=== PATIENT | male | born 1990 | race Caucasian/White ===

== ENCOUNTER 2019-09-09 10:30 | Emergency (ER) | payer SELFPAY ==
[2019-09-09 10:33] VITALS: BP 153/93; PULSE 112; RESP 18; TEMP 37; O2SAT 99; BMI 26.4
--- NOTE | 2019-09-09 10:41 | W.ED.WOUNDLC ---
HPI - Wound/Laceration General: Chief Complaint: Wound/Laceration Stated Complaint: l hand lac Time Seen by Provider: 09/09/19 10:41 Source: patient Mode of arrival: ambulatory Limitations: no limitations History of Present Illness: HPI narrative: Patient has injury to the left hand. Patient was cleaning his garage and picked up a piece of sheet metal and cut his left hand. Incident occurred just prior to arrival. Patient cannot recall his last tetanus. Patient appears well. Patient appears no acute distress. Review of Systems General: Reports: 10 or more systems reviewed and unremarkable except in HPI and below Skin/Breast: Reports: other (Laceration left hand) [facility] ED PFSH: Social History Smoking and tobacco status: current every day smoker Physical Exam Const: COMMON NORMALS: no acute distress and patient oriented x3 GENERAL APPEARANCE: cooperative HENMT: COMMON NORMALS: normocephalic HEAD & SCALP: normal to inspection and normocephalic Eye: GENERAL EYE: appearance normal, both eyes and all related structures Neck/C-Spine: COMMON NORMALS: full ROM Chest: COMMONS NORMALS: normal inspection of the chest Resp: COMMON NORMALS: normal respiratory effort EFFORT & INSPECTION: Yes able to speak in complete sentences Cardio: COMMON NORMALS: regular rate and regular rhythm RATE: regular rate RHYTHM: regular rhythm GI: COMMON NORMALS: non-tender : COMMON NORMALS: Yes no CVA tenderness BLADDER/KIDNEY EXAM: Yes no CVA tenderness Back/Pelvis: COMMON NORMALS: no CVA tenderness and thoracic and lumbar spine normal to inspection Extremity: COMMON NORMALS: normal to inspection Neuro: COMMON NORMALS: patient oriented x3 and moves all extremities Psych: COMMON NORMALS: mental status grossly normal and cooperative Skin: NARRATIVE SKIN EXAM: Patient has 2 lacerations to the left hand between the first and second digit. First laceration is approximately 3 cm, second laceration is about 4 cm. Patient also has a third superficial laceration 0.5 cm just medial to the first laceration. Both lacerations are parallel to 1 another. Patient has normal range of motion of the hand. And normal tendon function. No foreign body. Procedures Laceration Laceration 1: Site: hand Side (If applicable): left Size (cm): 3 Description: linear Depth: simple, single layer Local Anesthetic: lidocaine 1% and with epi Amount of anesthesia used (mL): 4 Pre-repair: wound explored and deep structures intact Skin layer closed with: nylon Size (cm): 5-0 Number of sutures: 7 Technique: simple, interrupted Laceration 2: Site: hand Side (If applicable): left Size (cm): 3.5 Description: linear Depth: simple, single layer Local Anesthetic: lidocaine 1% and with epi Amount of anesthesia used (mL): 4 Pre-repair: wound explored, irrigated extensively and wound margins revised Skin layer closed with: nylon Size (cm): 5-0 Number of sutures: 8 Technique: simple, interrupted (7) and horizontal mattress (1) Course Vital Signs: Vital signs: Vital Signs Temperature 98.6 F 09/09/19 10:33 Pulse Rate 112 H 09/09/19 10:33 Respiratory Rate 18 09/09/19 10:33 Blood Pressure 153/93 09/09/19 10:33 Pulse Oximetry 99 09/09/19 10:33 MDM - Wound/Laceration MDM Narrative: Medical decision making narrative: Patient comes in with injury to the left hand. Patient has 2 linear lacerations to the left hand to the thenar region with one being about 3 cm and the second 1 being about 3-1/2 cm. Patient has good range of motion of the hand. No tendon dysfunction. No foreign body was noted. Distal cap refill and sensation was intact. Differential diagnosis includes laceration, tendon injury, foreign body. Wound was repaired with sutures. Tetanus was updated. Patient will be prescribed prophylaxis antibiotic. Recommended sutures out in 7 to 10 days. With follow-up earlier as needed. Patient reported understanding and agreed to plan. 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
[2019-09-09] MEDS: tetanus-dipt-pertussis 0.5 mL SDV IM (10:55)
[2019-09-09 11:59] VITALS: BP 144/89; PULSE 80; RESP 18; O2SAT 96
== END 2019-09-09 11:59 | disposition home or self-care (01) ==
PROVIDERS: Emergency Provider Nurse Practitioner Family
DX: S61.412A Laceration without foreign body of left hand, initial encounter (principal); W26.8XXA Contact with other sharp object(s), not elsewhere classified, initial encounter; F17.210 Nicotine dependence, cigarettes, uncomplicated; Z23 Encounter for immunization
CPT/HCPCS: 12002; 12345; 90471; 90715; 99281; 99283; J2001